=== PATIENT | female | born 1975 | race Caucasian/White ===

== ENCOUNTER 2016-07-11 23:54 | Emergency (ER) | payer SELFPAY ==
[~2016-07-11] VITALS: Ht 162.6 cm; Wt 63.5 kg
[2016-07-12] MEDS ORDERED: DEXAMETHASONE SOD PHOSPHATE 10 MG/ML VIAL ONE (01:47)
[2016-07-12] MEDS ORDERED: ALBUTEROL FS 2.5 MG/3 ML VIAL.NEB ONE (01:51)
[2016-07-12] MEDS ORDERED: ALBUTEROL FS 2.5 MG/3 ML VIAL.NEB CONTNEB ONE (02:00)
[2016-07-12] MEDS ORDERED: DEXAMETHASONE SOD PHOSPHATE 4 MG/ML VIAL IV ONE (02:00)
[2016-07-12 03:34] VITALS: BP 132/76
== END 2016-07-12 03:35 | disposition home or self-care (01) ==
LOC: ER 23:58
DX: J45.909 Unspecified asthma, uncomplicated (principal); J06.9 Acute upper respiratory infection, unspecified; F41.9 Anxiety disorder, unspecified; F32.9 Major depressive disorder, single episode, unspecified; F17.200 Nicotine dependence, unspecified, uncomplicated; Z91.14 Patient's other noncompliance with medication regimen; Z88.8 Allergy status to other drugs, medicaments and biological substances
CPT/HCPCS: 71010-TC; A4606; J1100; Z7610

== ENCOUNTER 2016-08-28 20:50 | Emergency (ER) | payer MEDICAID ==
[~2016-08-28] VITALS: Ht 162.6 cm; Wt 63.5 kg
[2016-08-28] MEDS ORDERED: IOHEXOL-300 100 ML VIAL IV ONE (21:30)
[2016-08-28] MEDS ORDERED: IV NS 0.9% 250 ML IV ONE (21:30)
[2016-08-28] MEDS ORDERED: IBUPROFEN 600 MG TABLET PO ONE ×2 (21:30→21:58)
[2016-08-28] MEDS ORDERED: PIPERACILLIN /TAZOBACTAM 3.375 G in IV D5W 50 ML IV ONE (22:30)
[2016-08-28] MEDS ORDERED: IV D5W 50 ML IV ONE (22:43)
[2016-08-28] MEDS ORDERED: IV SET PRIMARY PUMP SET 1 EA INFUS.SET MC ONE (22:43)
[2016-08-28] MEDS ORDERED: PIPERACILLIN /TAZOBACTAM 3.375 G VIAL IV ONE (22:43)
[2016-08-28 23:33] VITALS: BP 128/79
== END 2016-08-28 23:33 | disposition home or self-care (01) ==
LOC: ER 20:55
DX: K04.7 Periapical abscess without sinus (principal); J45.909 Unspecified asthma, uncomplicated; F32.9 Major depressive disorder, single episode, unspecified; F41.9 Anxiety disorder, unspecified; Z88.8 Allergy status to other drugs, medicaments and biological substances; F17.200 Nicotine dependence, unspecified, uncomplicated
CPT/HCPCS: 70487; 96365; 99284; 99406; J2543; J7050; J7060; Q9967

== ENCOUNTER 2016-09-24 22:06 | Emergency (ER) | payer MEDICAID ==
[~2016-09-24] VITALS: Ht 162.6 cm; Wt 63.5 kg
[2016-09-24 23:46] VITALS: BP 119/87
[2016-09-25] MEDS ORDERED: IBUPROFEN 400 MG TABLET ONE (00:30)
[2016-09-25] MEDS ORDERED: FLUCONAZOLE (100 MG) 100 MG TABLET ONE (00:30)
[2016-09-25] MEDS ORDERED: FLUCONAZOLE (100 MG) 100 MG TABLET PO ONE (00:30)
[2016-09-25] MEDS ORDERED: IBUPROFEN 400 MG TABLET PO ONE (00:30)
== END 2016-09-25 01:10 | disposition home or self-care (01) ==
LOC: ER 22:06
DX: S82.002A Unspecified fracture of left patella, initial encounter for closed fracture (principal); G89.29 Other chronic pain; J45.909 Unspecified asthma, uncomplicated; F32.9 Major depressive disorder, single episode, unspecified; F17.200 Nicotine dependence, unspecified, uncomplicated; F41.9 Anxiety disorder, unspecified; Z91.048 Other nonmedicinal substance allergy status; B37.3 Candidiasis of vulva and vagina; Z88.8 Allergy status to other drugs, medicaments and biological substances; W18.39XA Other fall on same level, initial encounter; Y93.89 Activity, other specified; Y92.89 Other specified places as the place of occurrence of the external cause; Y99.9 Unspecified external cause status
CPT/HCPCS: 29505; 73564; 99284; A4606; Z7610

== ENCOUNTER 2016-10-14 20:17 | Emergency (ER) | payer MEDICAID ==
[~2016-10-14] VITALS: Ht 162.6 cm; Wt 63.5 kg
[2016-10-14 20:20] VITALS: BP 147/100
[2016-10-14] MEDS ORDERED: LORAZEPAM 1 MG TABLET PO ONE (20:30)
[2016-10-14] MEDS ORDERED: LORAZEPAM 1 MG TABLET ONE (20:33)
== END 2016-10-14 20:47 | disposition home or self-care (01) ==
LOC: ER 20:20
DX: F41.9 Anxiety disorder, unspecified (principal); J45.909 Unspecified asthma, uncomplicated; F32.9 Major depressive disorder, single episode, unspecified; F17.200 Nicotine dependence, unspecified, uncomplicated; Z88.8 Allergy status to other drugs, medicaments and biological substances
CPT/HCPCS: 99284; A4606; Z7610

== ENCOUNTER 2020-03-18 07:02 | Emergency (ER) | payer OTHER ==
[~2020-03-18] VITALS: Ht 162.6 cm; Wt 68.0 kg
[2020-03-18 07:02] VITALS: BP 144/98
[2020-03-18] MEDS ORDERED: MAG HYDROX/AL HYDROX/SIMETH 30 ML UDC PO ONE (07:30)
[2020-03-18] MEDS ORDERED: MAG HYDROX/AL HYDROX/SIMETH 30 ML UDC ONE (07:30)
--- NOTE | 2020-03-18 07:37 | NUR ---
Patient discharged to home in stable condition. Written and verbal after care instructions given. Patient verbalizes understanding of instruction.
== END 2020-03-18 07:37 | disposition home or self-care (01) ==
LOC: ER 07:07
DX: B37.0 Candidal stomatitis (principal); J45.909 Unspecified asthma, uncomplicated; F32.9 Major depressive disorder, single episode, unspecified; F41.9 Anxiety disorder, unspecified; F17.200 Nicotine dependence, unspecified, uncomplicated; Z88.8 Allergy status to other drugs, medicaments and biological substances; Z91.048 Other nonmedicinal substance allergy status